=== PATIENT | male | born 1945 | race Caucasian/White ===

== ENCOUNTER → 2024-11-13 | Outpatient (CLI) | payer MEDICARE, BC, SELFPAY ==
--- NOTE | 2024-11-13 11:00 | XR_ITS ---
Examination: Breast ultrasound, unilateral, right complete Date and time of exam: November 13, 2024 1139 hours INDICATIONS: Right breast tenderness beginning 3 months ago Technique: Real-time mariee scale ultrasonographic imaging performed right breast including all 4 quadrants as well as nipple retroareolar and axillary region. Findings: Retroareolar probable glandular tissue 4.2 x 1.2 x 3.1 cm, but clinical correlation advised IMPRESSION: BI-RADS Category 3: Probably benign findings One additional 6 month right mammogram follow-up is needed as well as comparison left breast sonogram to document stability of the findings in the retroareolar region right breast
--- NOTE | 2024-11-13 11:30 | XR_ITS ---
Examination: Diagnostic digital mammography, unilateral, right Computer aided detection 3-D breast Tomosynthesis, unilateral Date and time of exam: November 13, 2024 1153 hours INDICATIONS: Lump in the right breast with pain 3 months Technique: Nonmagnified MLO, CC views of the right breast have been obtained, reconstructed from 3-D Tomosynthesis images. R2 computer aided detection program utilized for evaluation of suspicious masses and/or abnormal calcifications. 3-D Tomosynthesis images obtained. Findings: Scattered areas of fibroglandular density 30 mm radiodensity in the retroareolar region right breast which may represent fungal tissue Impression: BI-RADS category 0: Incomplete assessment Recommend bilateral breast sonography follow-up to assess for retroareolar glandular tissue in both the right and left breast
[2024-11-13 12:45] LABS: Ammonia 40 uMol/L (11-32)
[2024-11-13 12:46] LABS: Alanine Aminotransferase 31 U/L (10-49); Albumin, Serum 3.4 gm/dL (3.4-4.8); Alkaline Phosphatase 137 U/L (46-116); Aspartate Amino Transferase 47 U/L (0-34); Bilirubin,Direct 0.7 mg/dL (0.0-0.3); Bilirubin,Total 4.1 mg/dL (0.3-1.2); Total Protein 5.6 gm/dL (5.7-8.2)
== END | disposition home or self-care (01) ==
LOC: CDIM 11:21 → COPL 12:04
PROVIDERS: PCP Family Medicine; Referring Provider Family Medicine; Visit Provider Family Medicine
DX: N63.0 Unspecified lump in unspecified breast (principal)
CPT/HCPCS: 36415; 76641; 77061; 77065; 80076; 82140; G0279

== ENCOUNTER → 2025-10-08 | Outpatient (CLI) | payer MEDICARE, BC, SELFPAY ==
--- NOTE | 2025-10-08 09:26 | XR_ITS ---
EXAMINATION: Sinus series 3 views TECHNIQUE: Chacha Samaniego lateral sinus series 3 views Date and time: October 08, 2025, 1024 hours INDICATIONS: Sinus pressure and pain 1 month. FINDINGS: Mild opacity in the frontal ethmoid air cells and maxillary antra as well as sphenoid air cells. No polyps or retention cyst No fluid levels IMPRESSION: Mild chronic pansinusitis
== END | disposition home or self-care (01) ==
PROVIDERS: PCP Family Medicine; Referring Provider Family Medicine; Visit Provider Family Medicine
DX: J32.4 Chronic pansinusitis (principal)
CPT/HCPCS: 70220